=== PATIENT | female | born 1950 | race Caucasian/White ===

== ENCOUNTER → 2017-05-19 | Outpatient (CLI) | payer MEDICARE ==
[2017-05-19 09:24] LABS: INTERNATIONAL NORMALIZED RATIO 3.45 (0.93-1.1)
== END ==
LOC: LAB 08:50
PROVIDERS: ATTEND Family Medicine
DX: I63.9 Cerebral infarction, unspecified (principal)
CPT/HCPCS: 36415; 85610

== ENCOUNTER → 2017-06-08 | Outpatient (CLI) | payer MEDICARE ==
[2017-06-08 09:40] LABS: INTERNATIONAL NORMALIZED RATIO 2.29 (0.93-1.1); PROTHROMBIN TIME 23.4 Seconds (9.6-11.5)
== END | disposition home or self-care (01) ==
LOC: LAB 09:16
PROVIDERS: ATTEND Family Medicine
DX: I63.9 Cerebral infarction, unspecified (principal)
CPT/HCPCS: 36415; 85610

== ENCOUNTER → 2017-06-16 | Outpatient (CLI) | payer MEDICARE ==
[2017-06-16 10:11] LABS: INTERNATIONAL NORMALIZED RATIO 2.16 (0.93-1.1); PROTHROMBIN TIME 22.1 Seconds (9.6-11.5)
== END ==
LOC: LAB 09:16
PROVIDERS: ATTEND Internal Medicine Cardiovascular Disease
DX: I63.9 Cerebral infarction, unspecified (principal)
CPT/HCPCS: 36415; 85610

== ENCOUNTER → 2017-06-30 | Outpatient (CLI) | payer MEDICARE ==
[2017-06-30 08:49] LABS: INTERNATIONAL NORMALIZED RATIO 2.74 (0.93-1.1); PROTHROMBIN TIME 27.7 Seconds (9.6-11.5)
== END | disposition home or self-care (01) ==
LOC: LAB 08:28
PROVIDERS: ATTEND Internal Medicine Cardiovascular Disease
DX: I63.9 Cerebral infarction, unspecified (principal)
CPT/HCPCS: 36415; 85610

== ENCOUNTER → 2017-07-19 | Outpatient (CLI) | payer MEDICARE | END | disposition home or self-care (01) | LOC: CFH 08:43 | PROVIDERS: ATTEND Family Medicine | DX: Z12.31 Encounter for screening mammogram for malignant neoplasm of breast (principal) | CPT/HCPCS: 77063; 77067 ==

== ENCOUNTER → 2017-07-19 | Outpatient (CLI) | payer MEDICARE ==
[2017-07-19 08:39] LABS: INTERNATIONAL NORMALIZED RATIO 2.16 (0.93-1.1); PROTHROMBIN TIME 22.1 Seconds (9.6-11.5)
== END | disposition home or self-care (01) ==
LOC: LAB 08:19
PROVIDERS: ATTEND Internal Medicine Cardiovascular Disease
DX: I63.9 Cerebral infarction, unspecified (principal)
CPT/HCPCS: 36415; 85610

== ENCOUNTER → 2017-09-14 | Outpatient (CLI) | payer MEDICARE ==
[2017-09-14 07:37] LABS: INTERNATIONAL NORMALIZED RATIO 3.49 (0.93-1.1); PROTHROMBIN TIME 35.4 Seconds (9.6-11.5)
== END ==
LOC: LAB 07:11
PROVIDERS: ATTEND Internal Medicine Cardiovascular Disease
DX: I63.9 Cerebral infarction, unspecified (principal)
CPT/HCPCS: 36415; 85610

== ENCOUNTER → 2017-10-04 | Outpatient (CLI) | payer MEDICARE ==
[2017-10-04 07:39] LABS: INTERNATIONAL NORMALIZED RATIO 2.43 (0.93-1.1); PROTHROMBIN TIME 24.8 Seconds (9.6-11.5)
== END | disposition home or self-care (01) ==
LOC: LAB 07:06
PROVIDERS: ATTEND Internal Medicine Cardiovascular Disease
DX: I63.9 Cerebral infarction, unspecified (principal)
CPT/HCPCS: 36415; 85610

== ENCOUNTER → 2017-10-26 | Outpatient (CLI) | payer MEDICARE ==
[2017-10-26 07:34] LABS: INTERNATIONAL NORMALIZED RATIO 3.09 (0.93-1.1); PROTHROMBIN TIME 31.1 Seconds (9.6-11.5)
== END | disposition home or self-care (01) ==
LOC: LAB 07:15
PROVIDERS: ATTEND Internal Medicine Cardiovascular Disease
DX: I63.9 Cerebral infarction, unspecified (principal)
CPT/HCPCS: 36415; 85610

== ENCOUNTER → 2017-12-14 | Outpatient (CLI) | payer MEDICARE ==
[2017-12-14 07:45] LABS: ALANINE AMINOTRANSFERASE 26 U/L (12-78); ALBUMIN 3.6 g/dL (3.4-5.0); ANION GAP 6 mmol/L (5-15); CALCIUM 9.4 mg/dL (8.5-10.1); CHLORIDE 113 mmol/L (98-107)
[2017-12-14 07:56] LABS: ALKALINE PHOSPHATASE 137 U/L (45-117); BILIRUBIN,TOTAL 0.7 mg/dL (0.2-1.0); CHOL/HDL RATIO 2.1; CHOLESTEROL, TOTAL 105 mg/dL (140-239); CREATININE 0.81 mg/dL (0.55-1.02); HDL CHOL % 49 % (28-40); HDL CHOLESTEROL (DIRECT) 51 mg/dL (40-60); LDL CHOLESTEROL,CALCULATED 37 mg/dL (54-169); LDL/HDL RATIO 0.7 (0.5-3.0); TOTAL PROTEIN 7.7 g/dL (6.4-8.2); TRIGLYCERIDES 83 mg/dL (50-200); VLDL CHOLESTEROL 17 mg/dL (0-25)
[2017-12-14 08:09] LABS: INTERNATIONAL NORMALIZED RATIO 2.16 (0.93-1.1); PROTHROMBIN TIME 22.1 Seconds (9.6-11.5)
== END | disposition home or self-care (01) ==
LOC: LAB 07:12
PROVIDERS: ATTEND Family Medicine
DX: I10 Essential (primary) hypertension (principal); I63.9 Cerebral infarction, unspecified
CPT/HCPCS: 36415; 80053; 80061; 84443; 85610

== ENCOUNTER → 2018-01-04 | Outpatient (CLI) | payer MEDICARE ==
[2018-01-04 08:04] LABS: INTERNATIONAL NORMALIZED RATIO 2.62 (0.93-1.1); PROTHROMBIN TIME 26.5 Seconds (9.6-11.5)
== END | disposition home or self-care (01) ==
LOC: LAB 07:09
PROVIDERS: ATTEND Internal Medicine Cardiovascular Disease
DX: I63.9 Cerebral infarction, unspecified (principal); Z79.01 Long term (current) use of anticoagulants; Z88.0 Allergy status to penicillin
CPT/HCPCS: 36415; 85610

== ENCOUNTER 2018-09-19 07:27 | Outpatient (CLI) | payer MEDICARE ==
[2018-09-19 07:58] LABS: INTERNATIONAL NORMALIZED RATIO 1.56 (0.93-1.1); PROTHROMBIN TIME 16.1 Seconds (9.6-11.5)
== END 2018-09-19 23:59 | disposition home or self-care (01) ==
LOC: LAB 07:27
PROVIDERS: ATTEND Internal Medicine Cardiovascular Disease
DX: I63.9 Cerebral infarction, unspecified (principal); Z79.01 Long term (current) use of anticoagulants
CPT/HCPCS: 36415; 85610

== ENCOUNTER → 2018-10-11 | Outpatient (CLI) | payer MEDICARE ==
[2018-10-11 07:48] LABS: INTERNATIONAL NORMALIZED RATIO 2.55 (0.93-1.1); PROTHROMBIN TIME 25.8 Seconds (9.6-11.5)
== END | disposition home or self-care (01) ==
LOC: LAB 07:08
PROVIDERS: ATTEND Internal Medicine Cardiovascular Disease
DX: I63.9 Cerebral infarction, unspecified (principal); Z79.01 Long term (current) use of anticoagulants
CPT/HCPCS: 36415; 85610

== ENCOUNTER → 2018-10-13 | Outpatient (CLI) | payer MEDICARE | END | disposition home or self-care (01) | LOC: EDBD → CFH 07:36 | PROVIDERS: ATTEND Family Medicine | DX: M79.604 Pain in right leg (principal) | CPT/HCPCS: 73523 ==

== ENCOUNTER → 2018-11-02 | Outpatient (CLI) | payer MEDICARE | END | disposition home or self-care (01) | LOC: EDBD → CFH 13:40 | PROVIDERS: ATTEND Family Medicine | DX: Z08 Encounter for follow-up examination after completed treatment for malignant neoplasm (principal); Z85.3 Personal history of malignant neoplasm of breast; Z98.890 Other specified postprocedural states | CPT/HCPCS: 77066 ==

== ENCOUNTER → 2018-11-08 | Outpatient (CLI) | payer MEDICARE ==
[2018-11-08 08:00] LABS: INTERNATIONAL NORMALIZED RATIO 2.94 (0.93-1.1); PROTHROMBIN TIME 29.6 Seconds (9.6-11.5)
== END | disposition home or self-care (01) ==
LOC: LAB 07:38
PROVIDERS: ATTEND Internal Medicine Cardiovascular Disease
DX: I63.9 Cerebral infarction, unspecified (principal); Z79.01 Long term (current) use of anticoagulants
CPT/HCPCS: 36415; 85610

== ENCOUNTER 2018-11-29 07:09 | Outpatient (CLI) | payer MEDICARE ==
[2018-11-29 07:36] LABS: ALANINE AMINOTRANSFERASE 23 U/L (12-78); ALBUMIN 3.5 g/dL (3.4-5.0); ANION GAP 5 mmol/L (5-15); CALCIUM 9.3 mg/dL (8.5-10.1); CHLORIDE 111 mmol/L (98-107); CHOLESTEROL, TOTAL 122 mg/dL (140-239); CREATININE 0.76 mg/dL (0.55-1.02)
[2018-11-29 07:39] LABS: ALKALINE PHOSPHATASE 149 U/L (45-117); BILIRUBIN,TOTAL 0.5 mg/dL (0.2-1.0); CHOL/HDL RATIO 2.3; HDL CHOL % 43 % (28-40); HDL CHOLESTEROL (DIRECT) 52 mg/dL (40-60); INTERNATIONAL NORMALIZED RATIO 2.1 (0.93-1.1); LDL CHOLESTEROL,CALCULATED 51 mg/dL (54-169); PROTHROMBIN TIME 21.4 Seconds (9.6-11.5); TOTAL PROTEIN 7.3 g/dL (6.4-8.2); TRIGLYCERIDES 95 mg/dL (50-200); VLDL CHOLESTEROL 19 mg/dL (0-25)
== END 2018-11-29 23:59 | disposition home or self-care (01) ==
LOC: LAB 07:09
PROVIDERS: ATTEND Internal Medicine Cardiovascular Disease
DX: I10 Essential (primary) hypertension (principal); I63.9 Cerebral infarction, unspecified
CPT/HCPCS: 36415; 80053; 80061; 85610

== ENCOUNTER 2019-01-02 07:14 | Outpatient (CLI) | payer MEDICARE | END 2019-01-02 23:59 | disposition home or self-care (01) | LOC: LAB 07:14 | PROVIDERS: ATTEND Internal Medicine Cardiovascular Disease | DX: I63.9 Cerebral infarction, unspecified (principal); Z79.01 Long term (current) use of anticoagulants | CPT/HCPCS: 36415; 85610 ==

== ENCOUNTER 2019-03-06 07:13 | Outpatient (CLI) | payer MEDICARE ==
[2019-03-06 07:43] LABS: INTERNATIONAL NORMALIZED RATIO 2.29 (0.93-1.1); PROTHROMBIN TIME 23.3 Seconds (9.6-11.5)
== END 2019-03-06 23:59 | disposition home or self-care (01) ==
LOC: LAB 07:13
PROVIDERS: ATTEND Internal Medicine Cardiovascular Disease
DX: I63.9 Cerebral infarction, unspecified (principal); Z79.01 Long term (current) use of anticoagulants
CPT/HCPCS: 36415; 85610

== ENCOUNTER → 2019-04-10 | Outpatient (CLI) | payer MEDICARE ==
[2019-04-10 08:12] LABS: INTERNATIONAL NORMALIZED RATIO 1.73 (0.93-1.1); PROTHROMBIN TIME 17.8 Seconds (9.6-11.5)
== END | disposition home or self-care (01) ==
LOC: LAB 07:41
PROVIDERS: ATTEND Internal Medicine Cardiovascular Disease
DX: I63.9 Cerebral infarction, unspecified (principal); Z79.01 Long term (current) use of anticoagulants
CPT/HCPCS: 36415; 85610

== ENCOUNTER 2019-05-08 07:03 | Outpatient (CLI) | payer MEDICARE ==
[2019-05-08 07:37] LABS: INTERNATIONAL NORMALIZED RATIO 3.4 (0.93-1.1); PROTHROMBIN TIME 34.1 Seconds (9.6-11.5)
== END 2019-05-08 23:59 | disposition home or self-care (01) ==
LOC: LAB 07:03
PROVIDERS: ATTEND Internal Medicine Cardiovascular Disease
DX: I63.9 Cerebral infarction, unspecified (principal); Z79.01 Long term (current) use of anticoagulants
CPT/HCPCS: 36415; 85610